=== PATIENT | female | born 1995 | race Caucasian/White ===

== ENCOUNTER 2020-07-17 22:47 | Emergency (ER) | payer OTHER ==
[2020-07-18 00:15] LABS: BUN/CREATININE RATIO 19 (0-10); HEMOGLOBIN 14.5 gm/dl (12.3-15.3); RED BLOOD COUNT 5.17 M/UL (4.00-5.10); WHITE BLOOD COUNT 18.1 K/UL (4.5-11.0)
[2020-07-18] MEDS ORDERED: ZOFRAN4 MG PO (01:56)
[2020-07-18] MEDS ORDERED: PROTONIX40 MG PO (01:56)
== END 2020-07-18 02:16 | disposition home or self-care (01) ==
LOC: ER1 22:47
PROVIDERS: Physician Assistant
DX: R10.13 Epigastric pain (principal); R07.2 Precordial pain; R11.2 Nausea with vomiting, unspecified; F17.210 Nicotine dependence, cigarettes, uncomplicated
CPT/HCPCS: 71260; 80053; 81001; 83690; 84484; 84703; 85025; 93005; 96374; 96375; 99284; C9113; J2405; Q9967